=== PATIENT | male | born 1960 | race Caucasian/White ===

== ENCOUNTER 2019-07-03 12:42 | Inpatient (IN) | payer BC ==
[2019-07-03] MEDS ORDERED: Ondansetron PF 4 MG/2 ML Vial IVP PRN (13:53)
[2019-07-03] MEDS ORDERED: Acetaminophen 325 MG TAB PO PRN (13:53)
[2019-07-03] MEDS ORDERED: Ondansetron ODT 4 MG TAB PO PRN (13:53)
[2019-07-03] MEDS ORDERED: Acetaminophen 650 MG Suppository PR PRN (13:53)
[2019-07-03] MEDS ORDERED: Heparin 25,000 units/D5W 500 ML ONE (14:26)
[2019-07-03] MEDS ORDERED: Heparin 25,000 units/D5W 500 ML IVPB SCH (14:30)
[2019-07-03 14:48] LABS: Hemoglobin 16.1 g/dL (14.0-18.0); Platelet Count 246 thou/uL (130-400)
--- NOTE | 2019-07-03 14:59 | PDOC.FPRHP ---
- History of Present Illness Chief Complaint: chest pain History of Present Illness: This is a 59yo male who presents to the ER from a [place] [facility] for a CC of chest pain. The patient states that he started with chest pain early Monday morning when he awoke SOB and with chest pressure. He went outside, took a zantac and BC powder and his symptoms eventually resolved after 30-45min. He went back to bed and had no issues the next day. He again went to sleep Monday night and woke up early Monday morning with the same chest pain. He describes it as pressure-like, in the middle of his chest and extends to both arms. He states he does have some numbness and tingling in b/l upper extremities. He states he became very SOB during both of these episodes. Denies nausea or vision changes. Denies diaphoresis. He states he does get chest pain/pressure with exertion. He states it does not take him much walking before he gets SOB and get the tightness. He sees sewer cleaner Dr. Mckeon and follows up with him regularly. He was cathed in 2000 but did not have stents placed. He states his last EF was 55%. He has a PMh of HTN and NATHEN. He takes his medications as directed and sleeps with a CPAP at night. ED Course: Patient started on a heparin drip at [place], given nitro, ASA and morphine. EKG NSR - Allergies/Adverse Reactions Allergies Allergy/AdvReac Type Severity Reaction Status Date / Time No Known Allergies Allergy Unverified 07/03/19 14:10 - History PMHx: HTN, GERD, NATHEN, diverticulitis, HLD PSHx: appendectomy, multiple back surgeries FHx: Dad and brother - CAD Social: 1/2pack/day x 45 years, 5 shots of Marcus Mclean/day, denies any illicit drug use - Review of Systems General: denies: fever/chills, weight/appetite/sleep changes, night sweats, fatigue Eyes: denies: vision changes ENT: denies: nasal congestion, rhinorrhea Respiratory: reports: shortness of breath, exercise intolerance. denies: cough , congestion Cardiovascular: reports: chest pain. denies: palpitation, edema, paroxysmal nocturnal dyspnea, orthopnea Gastrointestinal: denies: nausea, vomiting, diarrhea, constipation, abdominal pain Genitourinary: denies: dysuria Skin: denies: rashes, lesions Musculoskeletal: reports: pain. denies: tenderness, stiffness, swelling Neurological: reports: numbness. denies: seizure, weakness Psychological: denies: anxiety, depression - Vital signs BP: 115/70, Pulse: 69, Resp: 19, Temp: 98.3 (Oral), Pain: 6, O2 sat: 100 on Room Air, Time: 07/03/2019 14:39. Weight 105.2kg - Physical Exam Constitutional: NAD, awake, alert and oriented, well developed HEENT: normocephalic and atraumatic, PERRLA, EOMI, no scleral icterus, grossly normal hearing, MMM, good dention Neck: supple, FROM, no JVD Chest: no-tender to palpation, no lesions Heart: RRR, normal S1/S2, no murmurs/rubs/gallops, pulses present, no edema -Heart: Ant chest TTP, more on left Lungs: CTAB, no respiratory distress, good air movement, no rales/rhonchi, no wheezing, no retractions Abdomen: soft, non-tender, bowel sounds present -Abdomen: central obesity Musculoskeletal: ROM grossly normal Neurological: no focal deficit, normal sensation Skin: no rash/lesions, good turgor, capillary refill <2 seconds Heme/Lymphatic: no unusual bruising or bleeding, no purpura, no petechia Psychiatric: normal mood and affect, good judgment and insight, intact recent and remote memory FMR H&P: Results - Labs Result Diagrams: 07/03/19 14:37 Lab results: Hgb 16.1 g/dL (14.0-18.0) 07/03/19 14:37 Hct 47.8 % (42.0-52.0) 07/03/19 14:37 Plt Count 246 thou/uL (130-400) 07/03/19 14:37 FMR H&P: A/P - Problem List (1) Chest pain Current Visit: Yes Status: Acute Code(s): R07.9 - CHEST PAIN, UNSPECIFIED (2) Hypertension Current Visit: Yes Status: Acute Code(s): I10 - ESSENTIAL (PRIMARY) HYPERTENSION (3) NATHEN (obstructive sleep apnea) Current Visit: Yes Status: Acute Code(s): G47.33 - OBSTRUCTIVE SLEEP APNEA ( ADULT) (PEDIATRIC) (4) GERD (gastroesophageal reflux disease) Current Visit: Yes Status: Acute Code(s): K21.9 - GASTRO-ESOPHAGEAL REFLUX DISEASE WITHOUT ESOPHAGITIS (5) HLD (hyperlipidemia) Current Visit: Yes Status: Acute Code(s): E78.5 - HYPERLIPIDEMIA, UNSPECIFIED (6) COPD (chronic obstructive pulmonary disease) Current Visit: Yes Status: Acute (7) Tobacco abuse Current Visit: Yes Status: Acute Code(s): Z72.0 - TOBACCO USE - Plan Typical Chest pain, ACS r/o EKG NSR. Trop neg x2. Hx of normal cath in 2000, no stents. HEART Score of 5 - mod risk. - Will admit to tele, inpatient - Will continue to trend trop. - Will continue on heparin drip. Cardiology consulted. Appreciate recs. Patient NPO for possible cath today vs tomorrow. - Risk stratify with A1c, FLP, TSH HTN - aware, continue home meds. COPD - aware, continue home meds. DuoNeb PRN. GERD - aware, continue home meds NATHEN - Will order for CPAP at night HLD - aware, continue home meds Tobacco use - Nicotine patch placed. Counselled on cessation. Will continue to encourage to quit. Code: FULL VTE: heparin drip GI ppx: pepcid Dispo: admit to tele, inpatient. LOS >48hrs. Cards recs. Case discussed with Dr. Ventura FMR H&P: Upper Level - Plan Date/Time: 07/03/19 1917 I, [], have evaluated this patient and agree with findings/plan as outlined by property management intern resident. Pertinent changes/additions are listed here. Addendum - Attending - Attending Attestation Date/Time: 07/03/19 [id number] I personally evaluated the patient and discussed the management with Dr. Boyer I agree with the History, Examination, Assessment and Plan documented above with any addition or exceptions noted below- 59 yo male with h/o HTN, GERD, NATHEN < and HLD presented transferred from [facility] with c/o left sided substernal chest pain. States that he had an episode Monday evening- he took some Zantac and BC powders and pain resolved and he went to sleep and no problems the next day. Early this morning he again had the pain radiated down left arm and associated with SOB. Denies any N/V or diaphoresis. PMH/PSH/Meds/ SH reviewed and agree with resident's documentation. Afebrile VSS Exam reviewed and agree with resident's findings. Labs: TSH=1.2956, H/H=16.1/42.8, Trop I= 0.023, <0.010. EKG- NSR; no ST changes. A/P: 1) Chest pain - on hepqarin drip; cardiology consulted; plan for cath either today or tomorrow. 2) HTN- continue home meds. 3) NATHEN- continue CPAP at night
[2019-07-03] MEDS ORDERED: Nitroglycerin 2% Ointment 1 INCH/1 GM Packet TOP SCH (15:15)
[2019-07-03 16:27] LABS: Hemoglobin A1c 5.7 % (4.0-6.0)
[2019-07-03 16:44] LABS: CKMB 1.7 ng/mL (0-6.6)
[2019-07-03 16:45] LABS: Troponin I Less than 0.010 ng/mL (< 0.028)
[2019-07-03] MEDS ORDERED: Morphine 4 MG/ML VIAL ONE (17:06)
[2019-07-03] MEDS: Lactated Ringer's 1,000 ML IV SCH ×2 (18:05→23:10)
[2019-07-03 18:07] VITALS: BMI 36.5
[2019-07-03 19:08] LABS: PTT 35.3 SEC (22.9-36.1); Prothrombin Time 12.7 SEC (12.0-14.7)
[2019-07-03 19:25] LABS: Troponin I Less than 0.010 ng/mL (< 0.028)
[2019-07-03] MEDS: Heparin 10,000 UNITS/ 10 ML VIAL SLOW IVP SCH (19:57)
--- NOTE | 2019-07-03 20:39 | CON ---
DATE OF CONSULTATION: 07/03/2019 REASON FOR CONSULTATION: Chest pain. PRIMARY TAGMAN: Brigette Mckeon MD. HISTORY OF PRESENT ILLNESS: Mr. Mendez is a pleasant 59-year-old white gentleman, who comes to the hospital for chest pain. He states this started on Monday, started having a chest tightness. He took some aspirin and Zantac and the pain got better. He started having pain again today, so he decided to come in for further evaluation. He was admitted for rule out. He has had 2 negative troponins so far. He has a history of nonischemic cardiomyopathy. He has had a heart catheterization several years ago, I think in 2000 and he had no significant coronary artery disease. Most recent LV function is about 55%, normalized. On my evaluation, he is pain free. He states the pain he feels sometimes goes to bilateral arms and he feels a tingling on the right arm. He denies any shortness of breath currently. PAST MEDICAL HISTORY: 1. Hypertension. 2. GERD. 3. NATHEN. 4. Diverticulitis. 5. Hyperlipidemia. 6. History of nonischemic cardiomyopathy. PAST SURGICAL HISTORY: 1. Appendectomy. 2. Multiple back surgeries. FAMILY HISTORY: Father and brother with coronary artery disease. SOCIAL HISTORY: Drinks 5 shots of Marcus Mclean a day and smokes half a pack a day. No drug use. REVIEW OF SYSTEMS: A 12-point review of systems was done and was all negative unless stated in the history of present illness. OUTPATIENT MEDICATIONS: Zocor 40 mg a day. ALLERGIES: NO KNOWN DRUG ALLERGIES. PHYSICAL EXAMINATION: VITAL SIGNS: Temperature 97.7, pulse 70, respiratory rate 18, saturating 98% on room air, and blood pressure 119/72. GENERAL: Awake, alert, oriented x3, in no distress. HEENT: Normocephalic, atraumatic. NECK: Supple. LUNGS: Clear. CARDIOVASCULAR: S1 and S2. No S3 or S4. No murmurs. ABDOMEN: Soft. Positive bowel sounds. EXTREMITIES: Trace edema. SKIN: Warm and dry. LABORATORY DATA: Reviewed. Troponin is actually negative x3. Normal TSH. Hemoglobin A1c was 5.7. CBC with hemoglobin of 16, hematocrit 47. INR was normal. EKG was reviewed. ASSESSMENT AND PLAN: Chest pain. Concern for angina. We will plan on further risk stratification with a heart catheterization. We spoke at length about the risks and benefits of the procedure; risks included, but not limited to stroke, LA, , bleeding, need for blood transfusion, limb loss, organ loss, need for emergency bypass surgery, renal dysfunction from contrast, allergic reactions from contrast. He understands and verbalized understanding of this and agrees to proceed. Dr. Mckeon will perform this procedure tomorrow morning. Thank you for letting us to participate in the care of your patient. Job ID: [id number]
[2019-07-03] MEDS ORDERED: Enoxaparin Sodium 100 MG/ML SYRINGE SC SCH (21:00)
[2019-07-03] MEDS ORDERED: Nicotine 21 MG PATCH TD SCH (21:00)
[2019-07-03 21:16] LABS: PTT 216.4 SEC (22.9-36.1)
[2019-07-03] MEDS: Morphine 2 MG/ML SYRINGE SLOW IVP PRN (21:36)
[2019-07-03] MEDS ORDERED: Communication Order-Pharmacy FS SCH (21:45)
[2019-07-04 02:19] LABS: Prothrombin Time 13.3 SEC (12.0-14.7)
[2019-07-04 02:20] LABS: PTT 64.7 SEC (22.9-36.1)
[2019-07-04] MEDS: Heparin 10,000 UNITS/ 10 ML VIAL SLOW IVP SCH (03:36)
[2019-07-04] MEDS: Morphine 2 MG/ML SYRINGE SLOW IVP PRN (03:51)
[2019-07-04] MEDS: Nitroglycerin 0.4 MG TAB (25 Tab Bottle) PO PRN ×3 (04:00→04:11)
[2019-07-04 05:01] LABS: #Basophils 0.1 thou/uL (0.0-0.2); #Eosinphils 0.1 thou/uL (0.0-0.7); #Monocytes 0.5 thou/uL (0.11-0.59); #Neutrophils 3.4 thou/uL (1.40-6.50); %Eosinophils 2.3 % (0.0-10.0); %Lymphocytes 32.5 % (21.0-51.0); %Neutrophils 56.3 % (42.0-75.0); Hemoglobin 14.2 g/dL (14.0-18.0); Mean Corpuscular HGB CONC 35.1 g/dL (32.0-36.0); Mean Corpuscular Hemoglobin 34.3 pg (27.0-31.0); Mean Corpuscular Volume 97.6 fL (78.0-98.0); Mean Platelet Volume 6.2 fL (7.4-10.4); Platelet Count 239 thou/uL (130-400); Red Blood Cell (RBC) Count 4.15 mill/uL (4.70-6.10); White Blood Cell (WBC) Count 6.1 thou/uL (4.8-10.8)
[2019-07-04 05:28] LABS: Anion Gap 12 mmol/L (10-20); BUN (Urea Nitrogen) 11 mg/dL (8.4-25.7); Calc. Creatinine Clearance 130 mL/min (70-130); Calcium 8.9 mg/dL (7.8-10.44); Carbon Dioxide 28 mmol/L (22-29); Cardiac Risk 5.5 (Less than 4.5); Chloride 99 mmol/L (98-107); Cholesterol 127 mg/dl (< 200 Desired); Estimated GFR-MDRD 82; Glucose 105 mg/dL (70-105); HDL Cholesterol 23 mg/dL (>60 Neg Risk); LDL Cholesterol, Calculated 54 mg/dL; Sodium 135 mmol/L (136-145); Triglycerides 249 mg/dL (Less than 150); Troponin I Less than 0.010 ng/mL (< 0.028)
[2019-07-04] MEDS ORDERED: Sodium Chloride 0.9% 1,000 ML IV SCH (06:00)
--- NOTE | 2019-07-04 06:35 | PDOC.FM ---
- Subjective Subjective: NAEO. Patient resting comfortably in bed. Patient still endorsing some chest pain - 6/10 this morning. Pressure-like. Not relieved with morphine. He states his chest is tender to palpation. Patient mildly anxious about cath but is also ready to get it done. - Objective MAR Reviewed: Yes Vital Signs & Weight: Vital Signs (12 hours) Temp Pulse Resp BP Pulse Ox 07/04/19 04:15 71 19 107/55 L 99 07/04/19 04:08 75 18 114/65 98 07/04/19 04:03 73 20 131/69 07/04/19 03:54 98.1 F 75 16 143/75 H 98 07/03/19 21:38 73 20 117/55 L 07/03/19 20:15 98.6 F 77 20 119/68 98 Weight Weight 108.862 kg I&O: 07/02/19 07/03/19 07/04/19 06:59 06:59 06:59 Intake Total 2368 Output Total 800 Balance 1568 Result Diagrams: 07/04/19 04:51 07/04/19 04:51 Phys Exam - Physical Examination Constitutional: NAD HEENT: moist MMs, sclera anicteric Neck: supple, full ROM Respiratory: clear to auscultation bilateral Cardiovascular: RRR, no significant murmur, no rub chest TTP, more on L Gastrointestinal: soft, non-tender, no distention, positive bowel sounds Musculoskeletal: pulses present Neurological: non-focal, normal sensation, moves all 4 limbs Psychiatric: normal affect, A&O x 3 Skin: no rash, normal turgor, cap refill <2 seconds Dx/Plan (1) Chest pain Code(s): R07.9 - CHEST PAIN, UNSPECIFIED Status: Acute (2) Hypertension Code(s): I10 - ESSENTIAL (PRIMARY) HYPERTENSION Status: Acute (3) NATHEN (obstructive sleep apnea) Code(s): G47.33 - OBSTRUCTIVE SLEEP APNEA (ADULT) (PEDIATRIC) Status: Acute (4) GERD (gastroesophageal reflux disease) Code(s): K21.9 - GASTRO-ESOPHAGEAL REFLUX DISEASE WITHOUT ESOPHAGITIS Status: Acute (5) HLD (hyperlipidemia) Code(s): E78.5 - HYPERLIPIDEMIA, UNSPECIFIED Status: Acute (6) COPD (chronic obstructive pulmonary disease) Status: Acute (7) Tobacco abuse Code(s): Z72.0 - TOBACCO USE Status: Acute - Plan Plan: Typical Chest pain, ACS r/o EKG NSR. Trop neg x3. Hx of normal cath in 2000, no stents. HEART Score of 5 - mod risk. - Will continue on heparin drip - Morphine, nitro for pain - Cardiology consulted. Appreciate recs. Plan is for patient to have heart catheterization with Dr. Mckeon this AM. Will f/u results of this procedure. - Risk stratify: A1c 5.7, TSH normal; lipids: TG 249, total 127, HDL 23, LDL 54. HTN - aware, continue home meds. COPD - aware, continue home meds. DuoNeb PRN. GERD - aware, continue home meds NATHEN - Will order for CPAP at night HLD - aware, continue home meds Tobacco use - Nicotine patch placed. Counselled on cessation. Will continue to encourage to quit. Code: FULL VTE: heparin drip GI ppx: pepcid Dispo: LOS >48hrs. Cards recs. Case discussed with Dr. Lucas Addendum - Attending - Attending Attestation Date/Time: 07/04/19 1036 I personally evaluated the patient and discussed the management with Dr. Mcmanus. I agree with the History, Examination, Assessment and Plan documented above with any addition or exceptions noted below. Patient stable overnight. Going for heart cath this morning. Unstable angina is working diagnosis. Further mgmt per cath result. Continues on Heparin drip.
[2019-07-04] MEDS: Lactated Ringer's 1,000 ML IV SCH (06:42)
[2019-07-04] MEDS ORDERED: Communication Order-Pharmacy FS SCH (07:15)
[2019-07-04] MEDS ORDERED: Aspirin 81 mg Enteric Coated Tablet PO SCH ×2 (07:15→09:00)
[2019-07-04] MEDS ORDERED: Lidocaine 1% (PF) 30 ML VIAL ONE (08:45)
[2019-07-04] MEDS ORDERED: Famotidine/PF 20 mg/2ml Vial SLOW IVP SCH (09:00)
[2019-07-04] MEDS ORDERED: Midazolam HCl 2 mg/2 ml Vial ONE (09:23)
[2019-07-04] MEDS ORDERED: Fentanyl 100 MCG/2 ML VIAL ONE (09:24)
[2019-07-04] MEDS ORDERED: Nitroglycerin 100MG/250ML BOT 250 ML ONE (09:39)
[2019-07-04] MEDS ORDERED: Ketorolac Tromethamine 30 MG/ML VIAL ONE (09:54)
[2019-07-04] MEDS ORDERED: Nitroglycerin 0.4 MG TAB (25 Tab Bottle) SL PRN (11:06)
[2019-07-04] MEDS ORDERED: Acetaminophen/Codeine 30-300mg Tablet PO PRN ×2 (11:06)
[2019-07-04] MEDS ORDERED: Sodium Chloride 0.9% 200 ML IV PRN (11:06)
[2019-07-04 15:25] VITALS: BP 125/66; TEMP 98.4
[2019-07-04] MEDS ORDERED: Iopamidol 370 76% 100 ML VIAL ONE (20:17)
--- NOTE | 2019-07-05 06:42 | PQF ---
[employer] House Mover Helper Crystal Reports Winform EstrellaLEANDRA BARNARD MD [id number] [id number] CLINICAL DOCUMENTATION CLARIFICATION FORM: POST DISCHARGE Addendum to original discharge summary date: ____ Late entry note date: __ DATE: 07/05/2019 ATTN: LEANDRA CHISHOLM MD Please exercise your independent, professional judgment in responding to the clarification form. Clinical indicators are provided on the bottom of this form for your review Please check appropriate box(s): Etiology of CHEST PAIN [ ] HTN [ ] Angina:[ ] Stable[ ] Unstable [ ] Accelerated [ ] Pre-Infarction [ ] Prinzmetal [ ] Coronary Spasm Induced [ ] GERD [ ] acute coronary syndrome [ ] Other diagnosis [ ] Unable to determine In addition, please specify: Present on Admission (POA): [ ] Yes [ ] No [ ] Unable to determine For continuity of documentation, please document condition throughout progress notes and discharge summary. Thank You. CLINICAL INDICATORS - SIGNS / SYMPTOMS /LABS Chest pain and he describe as pressure like in the middle of chest and extends to both arms - Documented in H&P on 07/03 by Alexus Mcmanus MD Typical chestpain , ACS r/o - Documented in H&P on 07/03 by Alexus Mcmanus MD EKG NSR, Trop Neg*2 - Documented in H&P on 07/03 by Alexus Mcmanus MD Chest pain concer for Angina - Documented in Consultation on 07/03 by Sigifredo Burroughs MD Unstable angina is working diagnosis - Documented in Family Medicine PNs on by Yonathan Vaughan [employer] Hx of GERD - Documented in H&P on 07/03 by Alexus Mcmanus MD HTN - Documented in H&P on 07/03 by Alexus Mcmanus MD TREATMENTS: He went outside took a zantac and BC poeder - Documented in H&P on 07/03 by Alexus Mcmanus MD We continue to trend trop and on heparin drip - Documented in H&P on 07/03 by Alexus Mcmanus MD cardiology consult Continue home medication for HTNand GERD Cardiac catheterization on 07/04 Morphine nitro for pain [employer] House Mover Helper Crystal Reports Winform Viewer Please provide a response below if a more specific term indicating a diagnosis and/or acuity level for this condition can be identified. Please exercise your independent, professional judgment in responding to the clarification form. Clinical indicators are provided at the top of this form for your review. Thank you. (This form is maintained as a part of the permanent medical record) 2014 [employer] All Rights Reserved Greyson [not provided] MTDD
--- NOTE | 2019-07-05 14:55 | DIS ---
DATE OF ADMISSION: 07/03/2019 DATE OF DISCHARGE: 07/04/2019 RESIDENT: Alexus Mcmanus MD ADMITTING ATTENDING: Taryn Ventura MD DISCHARGE ATTENDING: Jose Lucas MD CONSULTS: Cardiology. PROCEDURES PERFORMED: Heart catheterization on 07/04/2019. DISCHARGE MEDICATIONS: 1. Simvastatin 40 mg oral daily. 2. Metformin 2 tabs oral daily. 3. Carvedilol 25 mg oral twice daily. 4. Entresto one tablet oral daily. 5. Fluticasone one puff inhalation twice daily. DISCONTINUED MEDICATIONS: None. PRIMARY DIAGNOSIS: Typical chest pain. SECONDARY DIAGNOSES: Hypertension, chronic obstructive pulmonary disease, gastroesophageal reflux disease, obstructive sleep apnea, hyperlipidemia, and tobacco use. HISTORY OF PRESENT ILLNESS/HOSPITAL COURSE: This is a 59-year-old male, who presented to the ER from [facility] for chief complaint of chest pain. The patient stated that his pain started early Monday morning when he woke up with shortness of breath and chest pressure. He went outside, took Zantac as well as BC powder and his symptoms resolved over 30 to 45 minutes. The patient went back to bed and had no issues the rest of the day. Again, when he went to bed the next night, he woke up again with the same chest pressure. He stated it was in the middle of his chest, pressure-like and extended into both arms. He also endorsed numbness and tingling in bilateral upper extremities. He had associated shortness of breath during these episodes but denied any nausea, vomiting, vision changes , or diaphoresis. The patient states that he does get chest pain and pressure with exertion. He has followed up with Dr. Mckeon regularly. He had a heart catheterization in 2000, that showed no blockages and therefore no stents were placed. He states that he has had an echo in the past and he knows his ejection fraction was 55%. The patient states that he takes his medications as directed and he sleeps with CPAP at night for NATHEN. The patient was started on a heparin drip at the [facility], was given nitroglycerin, aspirin as well as morphine. The patient's EKG showed normal sinus rhythm. The patient's vital signs were stable on arrival. The patient does have a history of a pack of cigarettes a day for last 45 years. Physical exam was unremarkable. The patient was admitted to the telemetry floor for further workup. The patient had troponins negative x3. He did have a heart score of 5, showing moderate risk for AFib. The patient was continued on heparin drip. Cardiology was consulted. The patient had a heart catheterization next day on 07/04/[address] Mckeon that showed no blockages. It was thought that his chest pain could be due to muscle or nerve etiology. The patient also had an A1c of 5.7 in the prediabetic range. His lipids were significant for triglyceride of 249. The patient was counseled on cessation of tobacco use. The patient was advised to follow up with his analytical lab technician outpatient. DISPOSITION: Stable. DISCHARGE INSTRUCTIONS: 1. Location: Home. 2. Diet: Heart healthy. 3. Activity: Ad dagmar. 4. Followup: Follow up with PCP within one week and follow up with Cardiology within a month. His PCP is Dr. Devan Juan Junior. Job ID: [id number] MTDD
--- NOTE | 2019-07-08 22:56 | EKG ---
Test Reason : STAT Blood Pressure : / mmHG Vent. Rate : 066 BPM Atrial Rate : 066 BPM P-R Int : 142 ms QRS Dur : 084 ms QT Int : 442 ms P-R-T Axes : 030 030 030 degrees QTc Int : 463 ms Normal sinus rhythm Septal infarct , age undetermined Abnormal ECG Confirmed by JEROME NICHOLAS M.D. ([id number]) on 07/08/2019 10:56:12 PM Referred By: PHAN Confirmed By:JEROME NICHOLAS M.D.
--- NOTE | 2019-07-08 22:58 | EKG ---
Test Reason : STAT Blood Pressure : / mmHG Vent. Rate : 072 BPM Atrial Rate : 072 BPM P-R Int : 144 ms QRS Dur : 082 ms QT Int : 442 ms P-R-T Axes : 027 023 -13 degrees QTc Int : 483 ms Normal sinus rhythm Septal infarct , age undetermined Abnormal ECG When compared with ECG of 18-JUL-2002 07:06, T wave inversion now evident in Anterior leads Confirmed by JEROME NICHOLAS M.D. ([id number]) on 07/08/2019 10:57:49 PM Referred By: PHAN Confirmed By:JEROME NICHOLAS M.D.
== END 2019-07-04 17:30 | disposition home or self-care (01) | DRG 287 ==
LOC: ERS 12:42 → 2NO 17:38
PROVIDERS: ADMIT Family Medicine; ATTEND Family Medicine
PROC: 4A023N7 Measurement of Cardiac Sampling and Pressure, Left Heart, Percutaneous Approach (ICD-10-PCS; principal; 2019-07-03)
PROC: B2111ZZ Fluoroscopy of Multiple Coronary Arteries using Low Osmolar Contrast (ICD-10-PCS; 2019-07-03)
PROC: B2151ZZ Fluoroscopy of Left Heart using Low Osmolar Contrast (ICD-10-PCS; 2019-07-03)
DX: R07.9 Chest pain, unspecified (principal); I20.0 Unstable angina; I10 Essential (primary) hypertension; K21.9 Gastro-esophageal reflux disease without esophagitis; G47.33 Obstructive sleep apnea (adult) (pediatric); E78.5 Hyperlipidemia, unspecified; F17.210 Nicotine dependence, cigarettes, uncomplicated; Z90.49 Acquired absence of other specified parts of digestive tract
CPT/HCPCS: 36415; 36416; 76942; 80048; 80061; 82553; 83036; 84443; 84484; 85014; 85018; 85025; 85049; 85347; 85610; 85730; 93005; 93010; 93458; 94760; 96365; 96366; 96375; 99152; 99153; C1769; J1644; J1885; J2001; J2250; J2270; J3010; Q9967; S0028

== ENCOUNTER 2019-08-21 13:05 | Outpatient (CLI) | payer BC ==
--- NOTE | 2019-08-21 16:10 | MRI ---
MRI CERVICAL SPINE WITHOUT CONTRAST: Date: 08/21/19 HISTORY: Cervical stenosis of spine. FINDINGS: Vertebral body heights are maintained. There is inhomogeneous marrow signal. There is a focal area of increased T1 and T2 signal involving the vertebral body of C7 consistent with hemangioma. No tonsill ar herniation is seen. The paraspinal musculature is unremarkable. There are degenerative changes manifested by disc osteophyte complex formation, uncovertebral and fac et hypertrophic changes. These result in severe right and mild left neural foraminal stenosis at C3-4 , bilaterally severe neural foraminal stenosis at C4-5, mild right and moderate left neural foraminal stenosis at C5-6, and bilateral moderate neural foraminal stenosis at C6-7 levels. There is central canal stenosis with impingement of the anterior spinal cord at C4-5 and C5-6 levels, worse at C5-6. The cervical spine demonstrates no evidence of cord edema, myelomalacia, or syringomyelia. IMPRESSION: Cervical spondylosis with multilevel stenotic changes as discussed above. POS: LEODAN
== END 2019-08-21 13:06 | disposition home or self-care (01) ==
LOC: BICMRI 13:05
PROVIDERS: ATTEND Nurse Practitioner Family
DX: M48.02 Spinal stenosis, cervical region (principal); M47.812 Spondylosis without myelopathy or radiculopathy, cervical region
CPT/HCPCS: 72141

== ENCOUNTER 2019-09-04 13:32 | Outpatient (CLI) | payer BC ==
--- NOTE | 2019-09-04 15:24 | MRI ---
MRI LUMBAR SPINE WITH AND WITHOUT CONTRAST: DATE: 09/04/2019 HISTORY: 59-year-old male with low back pain and lumbar spondylosis with neurogenic claudication M 48.062, and postlaminectomy syndrome, not elsewhere classified M 96.1 COMPARISON: none TECHNIQUE: Multiple sequences obtained in axial and sagittal planes, pre and post IV injection of gadolinium-bas ed contrast agent. FINDINGS: There are transitional levels at the thoracolumbar junction and lumbosacral junction. Review of prior chest radiographs reveal 13 paired ribs. For the purposes of this report, the level w ith small accessory ribs will be designated as L1. Consequently the level with greatest lordotic angulation will be designated as L5-S1 with high-grade disc space narrowing. S1 is partially lumbariz ed. S1-2 disc space is partially developed. Hemangioma of bone at T12. Modic type II changes prominently at L5-S1 and to a lesser degree L4-5. No bone marrow edema. No abnormal, unexpected enhancement. Symmetrical moderate atrophy of bilateral posterior paraspinal muscles. T12-L1:Minimal disc bulge. Otherwise normal. L1-2:Normal L2-3:Conus medullaris terminates here. Prominent posterior epidural fat pad. Mild bilateral neural fo raminal stenosis. No central spinal canal stenosis. Mild thecal sac stenosis. Disc space maintained. L3-4:Mild bilateral facet DJD. Mild disc bulge. Disc space maintained. Mild to moderate right neural foraminal stenosis. Mild left neural foraminal stenosis. No central spinal canal stenosis. Prominent posterior epidural fat pad. Mild to moderate thecal sac stenosis. L4-5:Mild to moderate disc space narrowing. Prominent diffuse disc bulge plus bilateral mild to moder ate facet DJD results in moderate right neural foraminal stenosis and severe left neural foraminal stenosis. Mild central spinal canal stenosis. Prominent posterior and bilateral lateral epidural fat pads. Severe thecal sac stenosis. L5-S1:Moderate to severe disc space narrowing. Broad-based disc-osteophyte bar complex encroaches upo n ventral aspect of spinal canal. Wide decompressive laminectomy defect results in generous caliber of spinal canal and thecal sac. Thin region of post surgical scar tissue in the left posterior edge o f the disc space. Moderate bilateral neural foraminal stenosis, right worse than left. S1-2: Hypoplastic intervertebral disc space and bilateral facet joints. No central or neural foramina l stenosis. IMPRESSION: 1) transitional levels at thoracolumbar junction and lumbosacral junction. 2.) Status post midline decompressive laminectomy at L5-S1. 3) high-grade neural foraminal stenosis at some levels, worst on the left at L4-5. 4) high-grade degenerative disc disease at L5-S1.
== END 2019-09-04 13:33 | disposition home or self-care (01) ==
LOC: SCSMRI 13:32
PROVIDERS: ATTEND Specialist
DX: M96.1 Postlaminectomy syndrome, not elsewhere classified (principal); M48.062 Spinal stenosis, lumbar region with neurogenic claudication; M48.02 Spinal stenosis, cervical region; M51.37 Other intervertebral disc degeneration, lumbosacral region; M48.061 Spinal stenosis, lumbar region without neurogenic claudication
CPT/HCPCS: 72158

== ENCOUNTER 2020-06-09 13:15 | Outpatient (CLI) | payer BC ==
--- NOTE | 2020-06-09 14:00 | CT ---
CT of thecervical spine: 06/09/2020 COMPARISON:None available HISTORY:Neck pain radiating down both arms with tingling and numbness TECHNIQUE: Serial axial CT imaging at2 mm intervals from theskull base through the lung apices withou t contrast. Coronal and sagittal reformatted imaging obtained. Findings:The imaged lung apices are unremarkable. Incidental note is made of a partially visualized megacisterna magna. The partially imaged paranasal sinuses and mastoid air cells appear well-aerated. There are moderate degenerative changes at the atlantoaxial interspace. The craniocervical junction a nd cervicothoracic junction appear intact. Evaluation for central canal and/or neural foraminal stenosis is limited on routine CT. C2-3: No osseous cause of significant central canal or neural foraminal stenosis. C3-4: There is disc space narrowing with disc bulge and right paracentral disc protrusion/osteophyte causing a moderate degree of central canal stenosis laterally on the right. Facet and uncovertebral osteophyte formation on the right causes moderate right neural foraminal stenosis. No significant lef t neural foraminal stenosis. C4-5: There is disc space narrowing with posterior disc osteophyte complex causing moderate central c anal stenosis. Bilateral uncovertebral osteophyte formation present with moderate bilateral neural foraminal stenosis, left greater than right. C5-6: There is disc bulge with at least mild central canal stenosis. No osseous cause of significant neural foraminal stenosis. C6-7: Posterior osteophyte causes at least mild central canal stenosis. Mild/moderate bilateral neura l foraminal stenosis on the basis of uncovertebral osteophyte formation, left greater than right. C7-T1: No osseous cause of significant central canal or neural foraminal stenosis. No lytic or blastic bone lesion. No acute fracture or dislocation. Impression:Significant multilevel cervical spine degenerative change as detailed above. MRI or CT mye logram may be beneficial to better evaluate the degree of central canal and/or neural foraminal stenosis within the cervical spine.
== END 2020-06-09 13:16 | disposition home or self-care (01) ==
LOC: BICCT 13:15
PROVIDERS: ATTEND Surgery
DX: M47.22 Other spondylosis with radiculopathy, cervical region (principal); M48.02 Spinal stenosis, cervical region
CPT/HCPCS: 72125

== ENCOUNTER 2020-08-24 06:52 | Outpatient (CLI) | payer BC | END 2020-08-24 06:53 | disposition home or self-care (01) | LOC: LABBT 06:52 | PROVIDERS: ATTEND Surgery | DX: Z01.818 Encounter for other preprocedural examination (principal); M48.02 Spinal stenosis, cervical region; M54.12 Radiculopathy, cervical region | CPT/HCPCS: 80048; 85027; 85610; 85730; 86850; 86900; 86901; 87635; 93005; 93010; U0003 ==

== ENCOUNTER 2020-08-24 13:00 | Inpatient (IN) | payer BC ==
[2020-08-24 17:22] LABS: Hemoglobin 14.2 g/dL (14.0-18.0); Mean Corpuscular HGB CONC 36.4 G/DL (32.0-36.0); Mean Corpuscular Hemoglobin 33.5 PG (27.0-33.0); Mean Platelet Volume 8.9 fl (7.4-10.4); Platelet Count 197 10x3/uL (130-400); RBC Distribution Width 12.2 % (11.5-14.5); Red Blood Cell (RBC) Count 4.24 10x6/uL (4.40-5.80); White Blood Cell (WBC) Count 7.6 10x3/uL (4.5-11.0)
[2020-08-24 17:37] LABS: Anion Gap 15 mmol/L (10-20); BUN (Urea Nitrogen) 19 mg/dL (8.4-25.7); Calc. Creatinine Clearance 0 mL/min (70-130); Calcium 9.1 mg/dL (7.8-10.44); Carbon Dioxide 28 mmol/L (22-29); Chloride 95 mmol/L (98-107); Glucose 219 mg/dL (70-105); Potassium 4.2 mmol/L (3.5-5.1); Sodium 134 mmol/L (136-145)
[2020-08-24 17:42] LABS: PTT 28.5 sec (22.0-33.0); Prothrombin Time 10.9 sec (9.5-12.1)
[2020-08-25 02:13] LABS: SARS-CoV-2 MS2 Positive; SARS-CoV-2 N Gene Negative; SARS-CoV-2 S Gene Negative; SARS-CoV-2 by NAA Not Detected (NotDetected); SARS-CoV-2 orf1ab Negative
[2020-08-26 08:20] VITALS: BMI 34.9
[2020-08-27] MEDS ORDERED: Thrombin 5000 UNITS/5 ML VIAL ONE (06:35)
[2020-08-27] MEDS ORDERED: Bacitracin Zinc Ointment 30 gm TUBE ONE (06:35)
[2020-08-27] MEDS ORDERED: Fentanyl 250 MCG/5 ML VIAL ONE (06:41)
[2020-08-27] MEDS ORDERED: Ketamine 50 MG/ML (10ML VIAL) ONE (06:41)
[2020-08-27] MEDS ORDERED: Albumin 5% 500 ML ONE (07:22)
[2020-08-27] MEDS ORDERED: Vecuronium 10 MG VIAL ONE ×2 (07:22→10:42)
[2020-08-27] MEDS ORDERED: Midazolam HCl 2 mg/2 ml Vial ONE ×2 (07:29→12:54)
[2020-08-27] MEDS ORDERED: SUGAMMADEX SODIUM 500 MG/5 ML VIAL ONE (07:48)
[2020-08-27] MEDS ORDERED: PHENYLEPHRINE-NS 100 MCG/ML 10 ML SYRINGE ONE ×2 (10:42→11:36)
[2020-08-27] MEDS ORDERED: ePHEDrine 50 MG/ML VIAL ONE (10:42)
[2020-08-27] MEDS ORDERED: Lidocaine 1% PF 5 ML VIAL ONE (10:42)
[2020-08-27] MEDS ORDERED: Dexamethasone 20 MG/5 ML VIAL ONE (10:42)
[2020-08-27] MEDS ORDERED: Rocuronium Bromide 10 MG/ML (10ML VIAL) ONE (10:42)
[2020-08-27] MEDS ORDERED: PROPOFOL 200 MG/20 ML VIAL ONE (10:42)
[2020-08-27] MEDS ORDERED: Ondansetron PF 4 MG/2 ML Vial ONE (10:42)
[2020-08-27] MEDS ORDERED: Phenylephrine 10 MG/ML VIAL ONE (11:39)
[2020-08-27] MEDS ORDERED: Fentanyl 100 MCG/2 ML VIAL ONE ×3 (11:55→14:36)
[2020-08-27] MEDS ORDERED: Promethazine HCl 25 MG/ML VIAL SLOW IVP PRN (13:01)
[2020-08-27] MEDS ORDERED: PACU-Morphine 4MG/ML VIAL SLOW IVP PRN (13:01)
[2020-08-27] MEDS ORDERED: Morphine Sulfate 2 MG/ML SYRINGE SLOW IVP PRN (13:01)
[2020-08-27] MEDS ORDERED: HYDROmorphone 2 MG/ML VIAL SLOW IVP PRN (13:01)
[2020-08-27] MEDS ORDERED: Ondansetron HCl/PF 4 MG/2 ML Vial IVP PRN (13:01)
[2020-08-27] MEDS ORDERED: Promethazine HCl 25 MG/ML VIAL IM PRN (13:01)
[2020-08-27] MEDS ORDERED: Morphine 2 MG/ML VIAL SLOW IVP PRN (13:31)
[2020-08-27] MEDS ORDERED: traMADol HCl 50 MG TAB PO PRN (13:31)
[2020-08-27] MEDS ORDERED: Mag-Al 1200 mg/1200 mg/30 ML UDCUP PO PRN (13:31)
[2020-08-27] MEDS ORDERED: Acetaminophen 325 MG TAB PO PRN (13:31)
[2020-08-27] MEDS ORDERED: diphenhydrAMINE 25 MG CAP PO PRN (13:31)
[2020-08-27] MEDS ORDERED: Bisacodyl 10 MG SUPP PR PRN (13:31)
[2020-08-27] MEDS ORDERED: Ondansetron PF 4 MG/2 ML Vial IVP PRN (13:31)
[2020-08-27] MEDS ORDERED: Milk Of Magnesia 30 ML UDCUP PO PRN (13:31)
[2020-08-27] MEDS ORDERED: hydrALAZINE 20 MG/ML VIAL SLOW IVP PRN (13:35)
[2020-08-27] MEDS ORDERED: Albuterol Sulfate 2.5 mg/3 ml Neb NEB PRN (15:03)
[2020-08-27] MEDS ORDERED: HYDROmorphone 2 MG/ML VIAL ONE (15:24)
[2020-08-27] MEDS: Sodium Chloride 0.9% 1,000 ML IV SCH (16:18)
[2020-08-27] MEDS: CEFAZOLIN 2 GM in Premix Bag 1 BAG IVPB SCH ×2 (16:21→23:09)
[2020-08-27] MEDS: metFORMIN XR 500 MG TAB PO SCH (21:00)
[2020-08-27] MEDS: Mometasone 100 MCG/PUFF (1 INHALER) INH SCH (21:34)
[2020-08-27] MEDS: Carvedilol 25 MG TAB PO SCH (21:50)
[2020-08-27] MEDS: Atorvastatin Calcium 20 MG TAB PO SCH (21:50)
[2020-08-27] MEDS: Acetaminophen/Codeine 30-300mg Tablet PO PRN (21:53)
[2020-08-27] MEDS: tiZANidine HCl 4 MG TAB PO PRN (23:09)
[2020-08-28] MEDS: HYDROcodone/Acetaminophen 7.5/325 mg Tablet PO PRN ×4 (04:05→20:23)
[2020-08-28] MEDS: Sodium Chloride 0.9% 1,000 ML IV SCH ×2 (04:23→15:50)
[2020-08-28] MEDS: CEFAZOLIN 2 GM in Premix Bag 1 BAG IVPB SCH ×3 (06:11→22:41)
[2020-08-28] MEDS: tiZANidine HCl 4 MG TAB PO PRN ×2 (06:11→20:22)
[2020-08-28] MEDS: Mometasone 100 MCG/PUFF (1 INHALER) INH SCH ×2 (08:03→19:10)
--- NOTE | 2020-08-28 08:17 | OP ---
DATE OF PROCEDURE: 08/27/2020 LOCATION: OR 11. 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 PROCEDURES PERFORMED: 1. Anterior C3-C4, C4-C5, C5-C6, and C6-C7 diskectomies for decompression of spinal cord nerve roots and worship of normal anatomic alignment and placement of interbody spacer, C3-C4, C4-C5, C5-C6, and C6-C7 (separate from plate). 2. Placement of interbody spacer, C3-C4, C4-C5, C5-C6, and C6-C7, packed with local bone autograft obtained from same incision on allograft for arthrodesis. 3. Use of operative microscope for microdissection. 4. Anterior cervical plate and screw fixation, C3, C4, C5, C6, and C7. 5. Cervical laminectomy C3-C4, C4-C5, C5-C6, and C6-C7. 6. Placement of screw and christian fixation, C3, C4, C5, C6 posterolaterally bilaterally. 7. Posterolateral arthrodesis C3, C4, C5, C6, C7 bilaterally with local bone autograft obtained from same incision on allograft. DESCRIPTION OF PROCEDURE: After informed consent was obtained from the patient, the patient was brought to the OR. Proper patient, pause, and identification were carried out. He was placed under excellent general endotracheal anesthesia and positioned supine on the OR table. All appropriate points were padded. We identified an anterior rabia that would allow for approach to the C3, C4, C5, C6, C7 segments from the right anterior side and this area was sterilely cleansed, prepared, and draped. Proper patient, pause, and identification were carried out. The wound was then opened with combination of sharp, monopolar, and blunt dissection, proceeded lateral to the larynx, pharynx, and tracheoesophageal bundle medial to the right carotid sheath. We identified the prevertebral layer of deep cervical fascia and the longus colli muscles. These were swept laterally. Retractors brought in. We then did distraction at C3-C4 following localization and diskectomy with use of operative microscope was performed at C3-C4. Interbody spacer was then placed following satisfactory decompression and preparation of the endplates, packed with local bone autograft obtained from same incision on allograft at C3-C4 for arthrodesis. This was separate from the plate. This process was repeated at C4-C5, C5-C6, and C6-C7, removal of the disks, decompression of the neural elements, placement of interbody spacers following endplate preparation, all 4 spacers were packed with graft for arthrodesis. Microscope was then removed and anterior cervical plate and screw fixation from C3 through C7 then occurred. The plate was separate from the spacers. The wound was copiously irrigated and closed in anatomic layers following meticulous hemostasis and a drain had been placed. We then turned our attention to placement of Payne En and securing his head with him prone in neutral position in the Payne irrigator overhead. A linear rabia was drawn out from C3 through C7. This area was sterilely cleansed, prepared, and draped. Proper patient, pause, and identification were carried out. The wound was then opened with combination of sharp, monopolar, and blunt dissection. C3, C4, C5, C6, C7 segments, dorsal spine, lamina, and facet complexes were all exposed. Localization confirmed our area of interest. We then performed C3, C4, C5, C6, C7 laminectomies, partial facetectomies, and foraminotomies. The lateral mass screws were placed in a standard anatomic technique at C3, C4, C5, C6, C7 with rods placed, final tightening occurred. Copious irrigation occurred throughout as did maximizing hemostasis. We then decorticated the lateral masses and local bone autograft obtained from same incision on allograft was placed for arthrodesis initiation posterolaterally. Copious irrigation occurred throughout and the wound was closed in anatomic layers following sprinkling of vancomycin powder. The patient then emerged from anesthesia. Job ID: [id number]
[2020-08-28] MEDS: Hydrochlorothiazide 25 MG TAB PO SCH (08:45)
[2020-08-28] MEDS: Carvedilol 25 MG TAB PO SCH ×2 (08:45→20:24)
[2020-08-28] MEDS: metFORMIN XR 500 MG TAB PO SCH ×2 (08:58→17:44)
[2020-08-28] MEDS: Acetaminophen/Codeine 30-300mg Tablet PO PRN ×3 (08:59→20:22)
[2020-08-28 09:28] LABS: #Lymphocytes 1.1 thou/uL (1.20-3.40); #Monocytes 1.2 thou/uL (0.11-0.59); %Basophils 0.2 % (0.0-1.0); %Eosinophils 0.2 % (0.0-10.0); %Lymphocytes 6.6 % (21.0-51.0); %Monocytes 7.3 % (0.0-10.0); %Neutrophils 85.8 % (42.0-75.0); Hemoglobin 12.5 g/dL (14.0-18.0); Mean Corpuscular HGB CONC 34.7 g/dL (32.0-36.0); Mean Platelet Volume 6.5 fL (7.4-10.4); Platelet Count 210 thou/uL (130-400); RBC Distribution Width 11.8 % (11.5-14.5); Red Blood Cell (RBC) Count 3.67 mill/uL (4.70-6.10); White Blood Cell (WBC) Count 16.3 thou/uL (4.8-10.8)
[2020-08-28 09:45] LABS: Anion Gap 15 mmol/L (10-20); BUN (Urea Nitrogen) 19 mg/dL (8.4-25.7); Calc. Creatinine Clearance 107 mL/min (70-130); Calcium 8.3 mg/dL (7.8-10.44); Carbon Dioxide 25 mmol/L (22-29); Chloride 98 mmol/L (98-107); Glucose 122 mg/dL (70-105); Potassium 4.3 mmol/L (3.5-5.1); Sodium 134 mmol/L (136-145)
--- NOTE | 2020-08-28 10:29 | PRG ---
DATE OF SERVICE: 08/28/2020 Mr. Mendez is postoperative day #1 following anterior-posterior decompression and fusion and restructuring of his cervical spine. He states he is really doing well this morning and states that "you are the man." His strength is good. He has mild dysphonia and dysphagia, but he is asking to normalize his diet. I told him not yet. His drain output has been 50 mL overnight. We will keep this in. When he is able to get to a commode, we will plan to remove his Gallego catheter with close assessment of his postvoid residual. We will also initiate Toradol. His creatinine has normalized. His hemoglobin is 12.5 and his blood pressure has been a bit saggy at 89/55. Job ID: [id number]
[2020-08-28] MEDS ORDERED: Ketorolac Tromethamine 30 MG/ML VIAL IVP SCH (12:00)
[2020-08-28] MEDS: Ketorolac Tromethamine 30 MG/ML VIAL IVP SCH ×2 (15:54→22:42)
[2020-08-28] MEDS: Atorvastatin Calcium 20 MG TAB PO SCH (20:21)
[2020-08-29] MEDS: Ketorolac Tromethamine 30 MG/ML VIAL IVP SCH (03:48)
[2020-08-29 06:11] LABS: Anion Gap 13 mmol/L (10-20); BUN (Urea Nitrogen) 17 mg/dL (8.4-25.7); Calc. Creatinine Clearance 126 mL/min (70-130); Calcium 7.7 mg/dL (7.8-10.44); Carbon Dioxide 25 mmol/L (22-29); Chloride 96 mmol/L (98-107); Glucose 112 mg/dL (70-105); Potassium 3.6 mmol/L (3.5-5.1); Sodium 130 mmol/L (136-145)
[2020-08-29] MEDS: Sodium Chloride 0.9% 1,000 ML IV SCH ×2 (06:16→21:13)
[2020-08-29] MEDS: CEFAZOLIN 2 GM in Premix Bag 1 BAG IVPB SCH ×3 (06:16→23:19)
[2020-08-29] MEDS: tiZANidine HCl 4 MG TAB PO PRN ×3 (06:28→21:13)
[2020-08-29] MEDS: Mometasone 100 MCG/PUFF (1 INHALER) INH SCH ×2 (08:11→18:34)
[2020-08-29] MEDS: metFORMIN XR 500 MG TAB PO SCH ×2 (08:46→17:08)
[2020-08-29] MEDS: Carvedilol 25 MG TAB PO SCH ×2 (08:46→21:13)
[2020-08-29] MEDS: Hydrochlorothiazide 25 MG TAB PO SCH (08:47)
[2020-08-29] MEDS: Acetaminophen/Codeine 30-300mg Tablet PO PRN ×2 (11:06→17:08)
--- NOTE | 2020-08-29 12:48 | PRG ---
DATE OF SERVICE: 08/29/2020 Mr. Mendez's strength is full. He is mobilizing. He is asked for pancakes and I will allow him to eat this, although I prefer him on clears, but I will acquiesce in this regard. He has had some sanguinous drainage from his posterior wound and we have repacked this and we have redressed this. We will watch and I anticipate discharge tomorrow. Job ID: [id number]
[2020-08-29] MEDS: HYDROcodone/Acetaminophen 7.5/325 mg Tablet PO PRN ×2 (15:11→21:13)
[2020-08-29] MEDS: Atorvastatin Calcium 20 MG TAB PO SCH (21:13)
[2020-08-30] MEDS: CEFAZOLIN 2 GM in Premix Bag 1 BAG IVPB SCH ×2 (06:27→15:12)
[2020-08-30] MEDS: HYDROcodone/Acetaminophen 7.5/325 mg Tablet PO PRN ×2 (06:35→12:49)
[2020-08-30] MEDS: tiZANidine HCl 4 MG TAB PO PRN (06:35)
[2020-08-30] MEDS: Mometasone 100 MCG/PUFF (1 INHALER) INH SCH (08:19)
[2020-08-30] MEDS: Carvedilol 25 MG TAB PO SCH (08:22)
[2020-08-30] MEDS: Hydrochlorothiazide 25 MG TAB PO SCH (08:22)
[2020-08-30] MEDS: metFORMIN XR 500 MG TAB PO SCH (09:13)
[2020-08-30] MEDS: Sodium Chloride 0.9% 1,000 ML IV SCH (09:16)
--- NOTE | 2020-08-30 11:10 | PRG ---
DATE OF SERVICE: 08/30/2020 Mr. Mendez is now postoperative day #3 from anterior-posterior decompression and fusion of the cervical spine. He has had some persistence of sanguineous drainage from his wound. We will place 2 anastacio. He otherwise is neurologically intact. He did attempt pancake yesterday per his request and was not able to swallow this. He understands why I would like him to stay on clear diet. We went over do's and don'ts as he continues to heal and I answered his questions. We will plan for discharge with followup arranged already in our clinic. Job ID: [id number]
[2020-08-30 12:09] VITALS: BP 121/71; TEMP 97.3
== END 2020-08-30 15:33 | disposition home or self-care (01) | DRG 454 ==
LOC: SURG A 08-27 06:11 → SURG B 08-27 19:35
PROVIDERS: ADMIT Surgery; ATTEND Surgery
PROC: 0RG20A0 Fusion of 2 or more Cervical Vertebral Joints with Interbody Fusion Device, Anterior Approach, Anterior Column, Open Approach (ICD-10-PCS; principal; 2020-08-27)
PROC: 0RG2071 Fusion of 2 or more Cervical Vertebral Joints with Autologous Tissue Substitute, Posterior Approach, Posterior Column, Open Approach (ICD-10-PCS; 2020-08-27)
PROC: 01N10ZZ Release Cervical Nerve, Open Approach (ICD-10-PCS; 2020-08-27)
PROC: 0RB30ZZ Excision of Cervical Vertebral Disc, Open Approach (ICD-10-PCS; 2020-08-27)
DX: M48.02 Spinal stenosis, cervical region (principal); M50.023 Cervical disc disorder at C6-C7 level with myelopathy; I42.9 Cardiomyopathy, unspecified; M50.123 Cervical disc disorder at C6-C7 level with radiculopathy; Z20.828 Contact with and (suspected) exposure to other viral communicable diseases; I10 Essential (primary) hypertension; E78.5 Hyperlipidemia, unspecified; G47.33 Obstructive sleep apnea (adult) (pediatric); R13.10 Dysphagia, unspecified; E11.9 Type 2 diabetes mellitus without complications; F41.9 Anxiety disorder, unspecified; Z99.89 Dependence on other enabling machines and devices; Z79.4 Long term (current) use of insulin; Z79.899 Other long term (current) drug therapy; Z87.891 Personal history of nicotine dependence
CPT/HCPCS: 36415; 36416; 76000; 80048; 85025; 85027; 85610; 85730; 86850; 86900; 86901; 87635; 93005; 94640; C1713; C1768; C1776; J0690; J1100; J1170; J1885; J2250; J2270; J2370; J2405; J2704; J3010; J3370; J3490; J7620; P9045; U0003

== ENCOUNTER 2020-08-31 05:42 | Emergency (ER) | payer BC ==
[2020-08-31] MEDS ORDERED: Ketorolac Tromethamine 30 MG/ML VIAL ONE (06:27)
== END 2020-08-31 06:38 | disposition home or self-care (01) ==
LOC: ERS 05:42
DX: K20.80 Other esophagitis without bleeding (principal); L85.9 Epidermal thickening, unspecified; I25.10 Atherosclerotic heart disease of native coronary artery without angina pectoris; K21.9 Gastro-esophageal reflux disease without esophagitis; G47.30 Sleep apnea, unspecified; I10 Essential (primary) hypertension; E78.5 Hyperlipidemia, unspecified; J44.9 Chronic obstructive pulmonary disease, unspecified; F17.210 Nicotine dependence, cigarettes, uncomplicated
CPT/HCPCS: 96372; 99284; J1885

== ENCOUNTER 2020-12-08 08:27 | Outpatient (CLI) | payer BC ==
[2020-12-08 18:59] LABS: SARS-CoV-2 PCR by NAA Not Detected (NotDetected)
== END 2020-12-08 08:28 | disposition home or self-care (01) ==
LOC: LABBT 08:27
PROVIDERS: ATTEND Surgery
DX: G95.9 Disease of spinal cord, unspecified (principal); R13.10 Dysphagia, unspecified; M48.02 Spinal stenosis, cervical region; M54.12 Radiculopathy, cervical region; M54.2 Cervicalgia
CPT/HCPCS: 87635; U0003; U0005

== ENCOUNTER 2020-12-10 13:06 | Outpatient (CLI) | payer BC | END 2020-12-10 13:07 | disposition home or self-care (01) | PROVIDERS: ATTEND Surgery | DX: R13.13 Dysphagia, pharyngeal phase (principal); G95.9 Disease of spinal cord, unspecified; Z98.1 Arthrodesis status | CPT/HCPCS: 74230 ==

== ENCOUNTER 2021-05-31 13:18 | Outpatient (CLI) | payer BC | END 2021-05-31 13:19 | disposition home or self-care (01) | PROVIDERS: ATTEND Physician Assistant Medical | DX: R13.13 Dysphagia, pharyngeal phase (principal); R63.3 Feeding difficulties; Z98.1 Arthrodesis status | CPT/HCPCS: 74230 ==